=== PATIENT | male | born 1965 | race Caucasian/White ===

== ENCOUNTER 2025-06-14 13:24 | Outpatient (AMB) | payer OTHER, SELFPAY ==
--- OUTSIDE RECORDS SUMMARY | 2025-06-14 14:45 | XMS_ITS | Clinical Summary ---
Author Organization [facility] Address [address] [place] [address] Phone Care Team Providers Care Deburrer Machine Name Role Phone Unavailable Primary Care Provider Unavailabl e Allergies No known active allergies Medications rosuvastatin (CRESTOR) 40 mg tablet Take 1 tablet (40 mg total) by mouth at bedtime. 4 Active apixaban (ELIQUIS) 5 mg tablet Take 1 tablet (5 mg total) by mouth 2 (two) times a day. 180 each 1 5 06/02/20 26 Active apixaban (ELIQUIS) 5 mg tablet Take 1 tablet (5 mg total) by mouth 2 (two) times a day. 06/07/20 25 Discontinued Active Problems Problem Noted Date Diagnosed Date Acute hypoxic respiratory fa ilure ([facility] V24, [facility] V28) 12/03/2024 DVT of lower extremity (deep venous thrombosis) ([facility] V24, [facility] V28) 12/03/2024 Factor 5 Leiden mutation, heterozygous ([facility] V24) 12/03/2024 Hypercoagulable state ([facility] V24) 12/03/2024 Acute pulmonary embolism wit hout acute cor pulmonale, unspecified pulmonary embolism type ([facility] V24, [facility] V28) 11/30/2024 Encounters Date Type Department Care Team Description 06/07/2025 9:15 AM EDT Office Visit [facility] Hematology Oncology [address] [place] [address] Glenny Zuñiga DO Bilateral pulmonary embolism ([facility] V24, [facility] V28) (Primary Dx); Factor V Leiden mutation ([facility] V24) from Last 3 Months Surgical History Surgery Date Site/Laterality Comments SKIN CANCER EXCISION Medical History Medical History Date Comments Pulmonary embolism ([facility] V24, [facility]/HCC V28) Factor V Leiden ([facility] V24) DVT (deep venous thrombosis) ([facility] V24, [facility]/ [facility] V28) Family History Medical History Relation Name Comments Heart attack Father Factor V Leiden deficiency Father's Brother Relation Name Status Comments Father Father's Brother Social History Tobacco Use Types Packs/Day Years Used Date Smoking Tobacco: Never Smokeless Tobacco: Never Tobacco Cessation:Counseling Given: Not Answered Alcohol Use Standard Drinks/Week Comments Yes 0 (1 standard drink = 0.6 oz pur e alcohol) 1-2 beers on the weekend Housing Instability Answer Date Recorde d Are you worried that in the next 2 months you may not have stable housing? No 12/01/2024 Food Access & Nutrition Answer Date Rec orded Do you have access to a vari ety of food including fruits and vegetables? Yes 12/01/2024 Health Literacy Answer Date Recorded How often do you need to hav e someone help you when you read instructions, pamphlets, or other written material from your doctor or pharmacy? Never 12/01/2024 Caregiver: How often do you need to have someone help you when you read instructions, pamphlets, or other written material from your doctor or pharmacy? Not on file 12/01/2024 Financial Risk Answer Date Recorded How hard is it for you to pa y for the very basics like food, housing, medical care, and air conditioning / heating? Not very hard 12/01/2024 Transportation Answer Date Recorded Has the lack of transportati on kept you from meetings, work, or from getting things needed for daily living? No Has the lack of transportati on kept you from medical appointments or from getting medications? No 12/01/2024 Social Isolation Answer Date Recorded How often do you feel lonely or isolated from th ose around you? Rarely 12/01/2024 Food Risk Answer Date Recorded Within the past 12 months we worried whether our food would run out before we got money to buy more. Never true 12/01/2024 Within the past 12 months th e food we bought just didn't last and we didn't have money to get more. Never true 12/01/2024 Dependent Care Answer Date Recorded Do you need help finding or paying for care for your loved ones. For example, child's nurse or elderly care for an older adult? No 12/01/2024 Education Answer Date Recorded Do you think completing more education or training, like finishing a GED, going to college, or learning a trade, would be helpful for you? No 12/01/2024 Employment and Income Answer Date Recor ded During the last four weeks, have you been actively looking for work? No 12/01/2024 Living Situation Answer Date Recorded What is your living situation? 0 12/01/2024 Interpersonal Safety Answer Date Record ed Physical Abuse 12/01/2024 Verbal Abuse 12/01/2024 Sex and Gender Information Value Date Recorded Sex Assigned at Male 11/30/2024 4:46 AM EST Legal Sex Male 1:05 AM EST Gender Identity Male 11/30/2024 4:46 AM EST Sexual Orientation Straight 11/30/2024 4: 52 AM EST Travel History Travel Start Travel End [place] 05/22/2025 05/27/2025 Obstetrics History Last Filed Vital Signs Vital Sign Reading Time Taken Comments Blood Pressure 135/76 06/07/2025 9:19 AM EDT Pulse 62 06/07/2025 9:19 AM EDT Temperature 36.6 C (97.9 F) 06/07/2025 9:19 AM EDT Respiratory Rate 18 12/03/2024 8:05 AM EST Oxygen Saturation 97% 06/07/2025 9:19 AM EDT Inhaled Oxygen Concentration - - Weight 79.4 kg (175 lb) 06/07/2025 9:19 AM EDT Height 182.9 cm (6') 06/07/2025 9:19 AM EDT Body Mass Index 23.73 06/07/2025 9:19 AM EDT Plan of Treatment Upcoming Encounters Date Type Department Care Team (Late st Contact Info) Description 11/29/2025 9:00 AM EST Office Visit [facility] Hematology Oncology [address] [place] [phone] Glenny Zuñiga, [address] [place] [address] Health Maintenance Due Date Last Done Comments DTaP,Tdap,and Td Vaccines (1 - Tdap) 1984 Hepatitis B Vaccines (1 of 3 - 19+ 3-dose series) 1984 Pneumococcal Vaccine: 50+ Years (1 of 1 - PCV) 2015 COVID-19 Vaccine (5 - season) 2024 07/09/2022, 09/04/2021, 12/09/2020, Additional history exists Depression Screening 10/21/2024 Cholesterol Screening (Lipid Panel) 11/13/2024 Colorectal Cancer Screening: Colonoscopy 11/13/2024 HIV Screening 11/13/2024 Hepatitis C Screening 11/13/2024 Zoster Vaccines (2 of 2) 03/18/2025 01/21/2025 Influenza Vaccine (#1) 2025 , 09/02/2023, 08/16/2022, Additional history exists Social Influencers of Health Screening 12/01/2025 12/01/2024 RSV Immunization Adult Patients (1 - 1-dose 75+ series) 2040 HIB Vaccines Aged Out No longer eligi ble based on patient's age to complete this topic HPV Vaccines Aged Out No longer eligi ble based on patient's age to complete this topic Hepatitis A Vaccines Aged Out No long er eligible based on patient's age to complete this topic IPV Vaccines Aged Out No longer eligi ble based on patient's age to complete this topic MMR Vaccines Aged Out No longer eligi ble based on patient's age to complete this topic Meningococcal ACWY Vaccine Aged Out N o longer eligible based on patient's age to complete this topic Meningococcal B Vaccine Aged Out No l onger eligible based on patient's age to complete this topic RSV Immunization Patients Under 20 months Aged Out No longer eligible based on patient's age to complete this topic Varicella Vaccines Aged Out No longer eligible based on patient's age to complete this topic Insurance [facility] Advance Directives * Full Code - Default (Latest Code Status on File) Date Activated Date Inactivated Comments 11/30/2024 6:33 PM 12/03/2024 5:55 PM This is orde r is used when code status has not been discussed with the patient, or code status is otherwise unknown/unconfirmed To update the patient's code status, place a code status order. Do not modify or discontinue any currently active code status orders.
== END 2025-06-15 11:45 | disposition home or self-care (01) ==
LOC: HO.HMGAL 13:24
PROVIDERS: Visit Provider Registered Nurse Emergency
DX: J30.89 Other allergic rhinitis (principal)
CPT/HCPCS: 95117; 95165

== ENCOUNTER 2025-07-26 16:00 | Outpatient (AMB) | payer OTHER, SELFPAY ==
--- OUTSIDE RECORDS SUMMARY | 2025-07-26 18:18 | XMS_ITS | Clinical Summary ---
Author Organization [facility] Address [address] [place] [address] Phone Care Team Providers Care El Teacher Name Role Phone Unavailable Primary Care Provider Unavailabl e Allergies No known active allergies Medications rosuvastatin (CRESTOR) 40 mg tablet Take 1 tablet (40 mg total) by mouth at bedtime. 10/05/2024 Active apixaban (ELIQUIS) 5 mg tablet Take 1 tablet (5 mg total) by mouth 2 (two) times a day. 180 each 1 06/07/2025 Active Active Problems Problem Noted Date Diagnosed Date Acute hypoxic respiratory fa ilure ([facility] V24, [facility] V28) 12/03/2024 DVT of lower extremity (deep venous thrombosis) ([facility] V24, [facility] V28) 12/03/2024 Factor 5 Leiden mutation, heterozygous ([facility] V24) 12/03/2024 Hypercoagulable state ([facility] V24) 12/03/2024 Acute pulmonary embolism wit hout acute cor pulmonale, unspecified pulmonary embolism type ([facility] V24, [facility] V28) 11/30/2024 Encounters Date Type Department Care Team Description 06/22/2025 4:49 PM EDT - 06/22/2025 11:59 PM EDT Hospital Encounter [facility] Ultrasound [address] [place] [address] Pain in right leg; Deep vein thrombosis (DVT) of right lower extremity, unspecified chronicity, unspecified vein ([facility] V24, [facility] V28) Discharge Disposition: Home or Self Care 06/18/2025 Telephone [facility] Hematology Oncology [address] [place] [address] Gricelda Montemayor MA 06/07/2025 9:15 AM EDT Office Visit [facility] Hematology Oncology [address] [place] [address] Glenny Zuñiga DO Bilateral pulmonary embolism ([facility] V24, [facility] V28) (Primary Dx); Factor V Leiden mutation ([facility] V24) from Last 3 Months Surgical History Surgery Date Site/Laterality Comments SKIN CANCER EXCISION Medical History Medical History Date Comments Pulmonary embolism ([facility] V24, [facility] V28) Factor V Leiden ([facility] V24) DVT (deep venous thrombosis) ([facility] V24, [facility] V28) Family History Medical History Relation [...] care for your loved ones. For example, manager child or elderly care for an older adult? [...] Date Recorded What is your living situation? Unrecognized valu e 12/01/2024 Interpersonal Safety Answer Date Record ed Physical Abuse Unrecognized value 12/01/2024 Verbal Abuse Unrecognized value 12/01/2024 Sex and Gender Information Value Date Recorded Sex Assigned at Male 11/30/2024 4:46 AM EST Legal Sex Male 1:05 AM EST Gender Identity Male 11/30/2024 4:46 AM EST Sexual Orientation Straight 11/30/2024 4: 52 AM EST Obstetrics History Last Filed Vital Signs Vital [...] Description 11/29/2025 9:00 AM EST Office Visit [facility] Hematology Oncology [address] [place] [phone] Yogesh Glenny Shelly, DO [address] [place] [address] Health Maintenance Due Date Last Done Comments Colorectal Cancer Screening: Colonoscopy 1965 DTaP,Tdap,and Td Vaccines (1 - Tdap) 1984 Hepatitis B Vaccines (1 of 3 - 19+ 3-dose series) 1984 Pneumococcal Vaccine: 50+ Years (1 of 1 - PCV) 2015 Depression Screening 10/21/2024 Cholesterol Screening (Lipid Panel) 11/13/2024 HIV Screening 11/13/2024 Hepatitis C Screening 11/13/2024 Zoster Vaccines (2 of 2) 03/18/2025 01/21/2025 COVID-19 Vaccine ( - season) 2025 07/09/2022, 09/04/2021, 12/09/2020, Additional history exists Influenza Vaccine (#1) 2025 , 09/02/2023, 08/16/2022, [...] on patient's age to complete this topic Procedures Procedure Name Priority Date/Time Associated Diagnosis Comments VAS US DUPLEX LOWER EXT VENOUS RIGHT Routine 06/22/2025 5:34 PM EDT Pain in right leg Deep vein thrombosis (DVT) of right lower extremity, unspecified chronicity, unspecified vein ([facility] V24, [facility] V28) from Last 3 Months Results * Vascular US duplex lower extremity venous right (06/22/2025 5:34 PM EDT) Anatomical Region Laterality Modality Vascular, Abdomen Ultrasound 06/22/2025 5:34 PM EDT Impressions 06/22/2025 5:34 PM EDT NO RIGHT LOWER EXTREMITY DEEP VENOUS THROMBOSIS. -------- FINAL REPORT -------- Dictated By: Avis Molina Dictated Date: 06/22/2025 17:34 ET Assigned Physician: Avis Molina Reviewed and Electronically Signed By: Avis Molina Signed Date: 06/22/2025 17:34 ET Workstation ID: [id number] Transcribed By: Self Edit Transcribed Date: 06/22/2025 17:34 ET Narrative 06/22/2025 5:34 PM EDT Ultrasound duplex right lower extremity. INDICATION: DVT Hx edema pain in extremities r/o right lower extremity DVT TECHNIQUE: 2-D and color Doppler imaging of the right lower extremity venous vasculature with compression and augmentation maneuvers. COMPARISON: No priors available. FINDINGS: There is normal flow, compression, and augmentation from the common femoral through the popliteal vein. No fluid collection. Procedure Note Avis Molina MD - 06/22/2025 Ultrasound duplex right lower extremity. INDICATION: DVT Hx edema pain in extremities r/o right lower extremity DVT TECHNIQUE: 2-D and color Doppler imaging of the right lower extremityvenous vasculature with compression and augmentation maneuvers. COMPARISON: No priors available. FINDINGS: There is normal flow, compression, and augmentation from the commonfemoral through the popliteal vein. No fluid collection. IMPRESSION: NO RIGHT LOWER EXTREMITY DEEP VENOUS THROMBOSIS. -------- FINAL REPORT -------- Dictated By: Avis Molina Dictated Date: 06/22/2025 17:34 ET Assigned Physician: Avis Molina Reviewed and Electronically Signed By: Avis Molina Signed Date: 06/22/2025 17:34 ET Workstation ID: [id number] Transcribed By: Self Edit Transcribed Date: 06/22/2025 17:34 ET Subramsho Cline MD CV VASCULAR PROCEDU RES Final Result from Last 3 Months Insurance [employer] Advance Directives * Full Code - Default (Latest Code Status on File) Date Activated Date Inactivated Comments 11/30/2024 6:33 PM 12/03/2024 5:55 PM This is ord er is used when code status has not been discussed with the patient, or code status is otherwise unknown/unconfirmed To update the patient's code status, place a code status order. Do not modify or discontinue any currently active code status orders.
== END 2025-07-26 16:01 | disposition home or self-care (01) ==
LOC: HO.HMGAL 16:00
PROVIDERS: Visit Provider Registered Nurse Emergency
DX: J30.89 Other allergic rhinitis (principal)
CPT/HCPCS: 95117; 95165

== ENCOUNTER 2025-08-30 16:20 | Outpatient (AMB) | payer OTHER, SELFPAY ==
--- OUTSIDE RECORDS SUMMARY | 2025-08-30 18:00 | XMS_ITS | Clinical Summary ---
Author Organization [facility] Address [address] [place] [address] Phone Care Team Providers Care Quality Control Assistant Name Role Phone Unavailable Primary Care Provider [...] Diagnosed Date Acute hypoxic respiratory fa ilure ([facility] V24, [facility] V28) 12/03/2024 DVT of lower extremity (deep venous thrombosis) ([facility] V24, [facility] V28) 12/03/2024 Factor 5 Leiden mutation, heterozygous ([facility] V24) 12/03/2024 Hypercoagulable state ([facility] V24) 12/03/2024 Acute pulmonary embolism wit hout acute cor pulmonale, unspecified pulmonary embolism type ([facility] V24, [facility] V28) 11/30/2024 Encounters Date Type Department Care Team Description 06/22/2025 4:49 PM EDT - 06/22/2025 11:59 PM EDT Hospital Encounter [facility] Ultrasound [address] [place] [address] Pain in right leg; Deep vein thrombosis (DVT) of right lower extremity, unspecified chronicity, unspecified vein ([facility] V24, [facility] V28) Discharge Disposition: Home or Self Care 06/18/2025 Telephone [facility] Hematology Oncology [address] [place] [address] Gricelda Montemayor MA 06/07/2025 9:15 AM EDT Office Visit [facility] Hematology Oncology [address] [place] [address] Glenny Zuñiga DO Bilateral pulmonary embolism ([facility] V24, [facility] V28) (Primary Dx); Factor V Leiden mutation ([facility] V24) from Last 3 Months Surgical History Surgery Date Site/Laterality Comments SKIN CANCER EXCISION Medical History Medical History Date Comments Pulmonary embolism ([facility] V24, [facility] V28) Factor V Leiden ([facility] V24) DVT (deep venous thrombosis) ([facility] V24, [facility] V[facility]) Family History Medical History Relation [...] care for your loved ones. For example, child care provider or elderly care for an older adult? [...] Description 11/29/2025 9:00 AM EST Office Visit [facility] Hematology Oncology [address] [place] [phone] Yogesh Glenny Shelly, DO [address] [place] [address] Health Maintenance Due Date Last Done Comments Colorectal Cancer Screening: Colonoscopy 1965 DTaP,Tdap,and Td Vaccines (1 - Tdap) 1984 Pneumococcal Vaccine: 50+ Years (1 of 1 - PCV) 2015 RSV Immunization Adult Patients (1 - Risk 50-74 years 1-dose series) 2015 Depression Screening 10/21/2024 Cholesterol Screening (Lipid Panel) 11/13/2024 HIV Screening 11/13/2024 Hepatitis C Screening 11/13/2024 Zoster Vaccines (2 of 2) 03/18/2025 01/21/2025 COVID-19 Vaccine ( - season) 2025 07/09/2022, 09/04/2021, 12/09/2020, Additional history exists Influenza Vaccine (#1) 2025 , 09/02/2024, 09/02/2023, Additional history exists Social Influencers of Health Screening 12/01/2025 12/01/2024 HIB Vaccines Aged Out No longer eligi ble based on patient's age to complete this topic HPV Vaccines Aged Out No longer eligi ble based on patient's age to complete this topic Hepatitis A Vaccines Aged Out No long er eligible based on patient's age to complete this topic Hepatitis B Vaccines Aged Out No long er eligible [...] right lower extremity, unspecified chronicity, unspecified vein ([facility] V24, [facility] V28) from Last 3 Months Results * [...] Signed Date: 06/22/2025 17:34 ET Workstation ID: [id number] Transcribed By: Self Edit Transcribed Date: 06/22/2025 [...] Signed Date: 06/22/2025 17:34 ET Workstation ID: [id number] Transcribed By: Self Edit Transcribed Date: 06/22/2025 17:34 ET Subramsho Cline MD CV VASCULAR PROCEDU RES Final Result from Last 3 Months Insurance [email or web address] Advance Directives * Full Code - [...]
== END 2025-08-30 16:20 | disposition home or self-care (01) ==
LOC: HO.HMGAL 16:20
PROVIDERS: PCP Family Medicine; Visit Provider Registered Nurse Emergency
DX: J30.89 Other allergic rhinitis (principal)
CPT/HCPCS: 95117; 95165

== ENCOUNTER 2025-10-04 09:41 | Outpatient (AMB) | payer OTHER, SELFPAY | END 2025-10-04 09:42 | disposition home or self-care (01) | LOC: HO.HMGAL 09:41 | PROVIDERS: PCP Family Medicine; Visit Provider Registered Nurse Emergency | DX: J30.89 Other allergic rhinitis (principal) | CPT/HCPCS: 95117; 95165 ==